=== PATIENT | female | born 1990 | race African-American/Black ===

== ENCOUNTER 2017-11-08 05:00 | Inpatient (IN) ==
[2017-11-08] MEDS ORDERED: BUTORPHANOL 2 MG/ML VIAL IV PRN (05:33)
[2017-11-08] MEDS ORDERED: MEPERIDINE 50 MG/1 ML VIAL IV PRN (05:33)
[2017-11-08] MEDS ORDERED: ONDANSETRON 4 MG/2 ML VIAL IV PRN (05:33)
[2017-11-08 05:54] LABS: Apearance,Urine Slightly Hazy (Clear); Bilirubin,Urine Negative (Negative); Blood, Urine Negative (Negative); Glucose,Urine (UA) Negative (Negative); Ketones,Urine 5 mg/dL (Negative); Mucus,Urine Occasional /LPF (Occasional); Nitrite,Urine Negative (Negative); Protein,Urine Negative; RBC,Urine <1 /HPF (0-4); Squamous Epithelial Cell,Urine Occasional /HPF (0-10); Urine Color Yellow (Yellow); Urine Specific Gravity 1.012 (1.001-1.035); Urine Urobilinogen < 2.0 EU/DL (0.2-1.0); WBC,Urine 1 /HPF (0-6)
[2017-11-08] MEDS ORDERED: LACTATED RINGERS 1,000 ML IV SCH (06:00)
[2017-11-08 06:05] LABS: Basophils % 0.5 % (0.0-0.8); Eosinophils # 0.1 10*3/uL (0.0-0.87); Eosinophils % 1.2 % (0.00-10.9); Hemoglobin 7.7 GM/DL (12.0-16.0); Immature Granulocytes % 0.7 %; Immature Granulocytes Absolute 0.04 #; Lymphocytes # 1.9 10*3/uL (1.4-4.0); Lymphocytes % 32.5 % (21.3-54.2); Mean Corpuscular HGB Conc 28.5 GM/DL (32-36); Mean Corpuscular Hemoglobin 21 PG (27-34); Mean Corpuscular Volume 72.8 FL (87-102); Monocytes # 0.6 10*3/uL (0.11-0.8); Neutrophils # 3.2 10*3/uL (1.4-7.4); Neutrophils % 55.1 % (38.7-73.9); Platelet Count 198 T/CUMM (130-400); Red Blood Count 3.71 MC/CUMM (3.8-5.5); Red Cell Distribution Width 16.3 % (9.3-17.3); White Blood Count 5.8 T/CUMM (4-12)
[2017-11-08 06:22] LABS: Hypochromasia 2+; Microcytosis 2+
[2017-11-08 06:23] LABS: Acanthocytes Few; Elliptocytes 1+
[2017-11-08 06:25] LABS: Platelet Estimate Adequate
[2017-11-08 06:35] LABS: Eosinophils 4 % (0-10); Lymphocytes 27 % (20-55); Segmented Neutrophils 62 % (50-85); Total Cells Counted 100
[2017-11-08] MEDS ORDERED: OXYTOCIN/LR 20 UNIT/1,000 ML BAG IV SCH ×2 (07:30→08:30)
[2017-11-08] MEDS ORDERED: LACTATED RINGERS 1,000 ML IV ONE (07:39)
[2017-11-08] MEDS ORDERED: FAMOTIDINE 20 MG/2 ML VIAL IV ONE (07:39)
[2017-11-08] MEDS ORDERED: CITRIC ACID/SODIUM CITRATE 30 ML UDCUP PO ONE (07:39)
[2017-11-08] MEDS ORDERED: PROMETHAZINE 25 MG/1 ML VIAL IM ONE (07:39)
[2017-11-08] MEDS ORDERED: hydrOXYzine HCL 25 MG/1 ML VIAL IM PRN (07:39)
[2017-11-08] MEDS ORDERED: diphenhydrAMINE 50 MG/1 ML VIAL IV PRN ×2 (07:39)
[2017-11-08] MEDS ORDERED: ONDANSETRON 4 MG/2 ML VIAL IV ONE (07:39)
[2017-11-08] MEDS ORDERED: ePHEDrine 50 MG/ML AMP IV PRN (07:39)
[2017-11-08] MEDS ORDERED: CITRIC ACID/SODIUM CITRATE 30 ML UDCUP ONE (07:46)
[2017-11-08] MEDS ORDERED: fentaNYL 2 MCG/ROPIV 0.2% EPID 150 ML EPIDURAL SCH (08:00)
[2017-11-08 08:56] LABS: Apearance,Urine CLEAR (Clear); Bacteria,Urine Occasional /HPF (Few); Bilirubin,Urine Negative (Negative); Blood, Urine Small mg/dL (Negative); Glucose,Urine (UA) Negative (Negative); Ketones,Urine 5 mg/dL (Negative); Mucus,Urine Occasional /LPF (Occasional); Nitrite,Urine Negative (Negative); Protein,Urine Negative; RBC,Urine 2 /HPF (0-4); Squamous Epithelial Cell,Urine Occasional /HPF (0-10); Urine Color Yellow (Yellow); Urine Specific Gravity 1.013 (1.001-1.035); Urine Urobilinogen < 2.0 EU/DL (0.2-1.0); WBC,Urine 1 /HPF (0-6)
[2017-11-08 10:53] LABS: Cord Arterial Blood HCO3 20.2 MMOL/L
[2017-11-08 10:56] LABS: Cord Venous Blood HCO3 22.7 MMOL/L; Cord Venous Blood PCO2 37.6 MMHG; Cord Venous Blood PO2 31.4
[2017-11-08] MEDS ORDERED: ACETAMINOPHEN/CODEINE 300-30 MG TABLET PO PRN (14:53)
[2017-11-08] MEDS ORDERED: BENZOCAINE 20%/MENTHOL 0.5% SPRAY 56 GM CAN TOP PRN (14:53)
[2017-11-08] MEDS ORDERED: MEASLES/MUMPS/RUBELLA VACCINE 0.5 ML VIAL SUBCUT ONE (14:53)
[2017-11-08] MEDS ORDERED: WITCH HAZEL PADS 100/JAR TOP PRN (14:53)
[2017-11-08] MEDS ORDERED: RHO(D) IMMUNE GLOBULIN 300 MCG SYRINGE IM ONE (14:53)
[2017-11-08] MEDS ORDERED: ACETAMINOPHEN 325 MG TABLET PO PRN (14:53)
[2017-11-08] MEDS ORDERED: IBUPROFEN 800 MG TABLET PO PRN (14:53)
[2017-11-08] MEDS ORDERED: BISACODYL 10 MG SUPP RECTAL PRN (14:53)
[2017-11-08] MEDS ORDERED: oxyCODONE/ACETAMINOPHEN 5-325 MG TABLET PO PRN ×2 (14:53)
[2017-11-08] MEDS ORDERED: DIPH/TET/ACEL PERT BOOSTER VACCINE 0.5 ML VIAL IM ONE (14:53)
[2017-11-08] MEDS ORDERED: LANOLIN 50% CREAM 0.3 OZ TUBE TOP PRN (14:53)
[2017-11-08] MEDS ORDERED: HYDROCORTISONE 2.5% RECTAL CREAM 30 GM TUBE TOP PRN (14:53)
[2017-11-08] MEDS: FERROUS SULFATE 325 MG TABLET PO SCH (20:37)
[2017-11-08] MEDS: DOCUSATE SODIUM 100 MG CAPSULE PO SCH (20:37)
[2017-11-09] MEDS ORDERED: ONDANSETRON 4 MG/2 ML VIAL ONE (01:49)
[2017-11-09] MEDS ORDERED: ONDANSETRON 4 MG/2 ML VIAL IV PRN (01:57)
[2017-11-09 06:22] LABS: Basophils % 0.5 % (0.0-0.8); Eosinophils # 0.1 10*3/uL (0.0-0.87); Eosinophils % 1.6 % (0.00-10.9); Hematocrit 26.7 VOL% (35.7-47.0); Hemoglobin 7.7 GM/DL (12.0-16.0); Immature Granulocytes % 0.3 %; Immature Granulocytes Absolute 0.03 #; Lymphocytes # 2.3 10*3/uL (1.4-4.0); Lymphocytes % 26.6 % (21.3-54.2); Mean Corpuscular HGB Conc 28.8 GM/DL (32-36); Mean Corpuscular Hemoglobin 21 PG (27-34); Mean Platelet Volume 10.9 FL (9.6-12.0); Monocytes # 0.8 10*3/uL (0.11-0.8); Monocytes % 9.8 % (1.7-12.7); Neutrophils # 5.3 10*3/uL (1.4-7.4); Neutrophils % 61.2 % (38.7-73.9); Platelet Count 210 T/CUMM (130-400); Red Blood Count 3.76 MC/CUMM (3.8-5.5); Red Cell Distribution Width 16.3 % (9.3-17.3); White Blood Count 8.6 T/CUMM (4-12)
[2017-11-09 06:44] LABS: Burr Cells Slight; Elliptocytes Few; Giant Platelets Few; Hypochromasia 1+; Platelet Estimate Adequate
[2017-11-09 06:45] LABS: Microcytosis 1+
[2017-11-09] MEDS: DOCUSATE SODIUM 100 MG CAPSULE PO SCH ×2 (09:06→21:09)
[2017-11-09] MEDS: FERROUS SULFATE 325 MG TABLET PO SCH ×2 (09:06→21:09)
[2017-11-09] MEDS ORDERED: SODIUM CHLORIDE 0.9% 1,000 ML IV PRN (14:55)
[2017-11-09 23:26] LABS: Hematocrit 33.2 VOL% (35.7-47.0)
[2017-11-09 23:28] LABS: Hemoglobin 10.1 GM/DL (12.0-16.0)
[2017-11-10 07:49] VITALS: BP 113/61
[2017-11-10] MEDS: FERROUS SULFATE 325 MG TABLET PO SCH (08:23)
[2017-11-10] MEDS: DOCUSATE SODIUM 100 MG CAPSULE PO SCH (08:23)
== END 2017-11-10 14:30 | disposition home or self-care (01) | DRG 560 ==
LOC: N.LDOUT 05:00 → N.LD 05:01 → N.OB 12:53
PROVIDERS: ADMIT Obstetrics & Gynecology; ATTEND Obstetrics & Gynecology